=== PATIENT | female | born 1995 | race Caucasian/White ===

== ENCOUNTER 2016-08-07 19:42 | Emergency (ER) | payer OTHER, BC ==
[2016-08-07 19:56] VITALS: BP 131/82
[2016-08-07] MEDS ORDERED: IBUPROFEN 800 MG TABLET PO ONE (20:13)
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
== END 2016-08-07 21:46 | disposition home or self-care (01) ==
LOC: ER 19:42
DX: S30.811A Abrasion of abdominal wall, initial encounter (principal); M54.2 Cervicalgia; M62.838 Other muscle spasm; R51 Headache; V43.52XA Car driver injured in collision with other type car in traffic accident, initial encounter
CPT/HCPCS: 99283